=== PATIENT | female | born 1970 | race American Indian/Alaskan Native ===

== ENCOUNTER 2020-09-13 06:09 | Observation (INO) | payer OTHER ==
[2020-09-09 15:08] LABS: Basophils % (Auto) 0.9 % (0.0-1.8); Eosinophils # (Auto) 0.1 K/mm3 (0.0-0.4); Eosinophils % (Auto) 2.9 % (0.0-4.3); Hematocrit 41.1 % (30.3-42.9); Hemoglobin 14.1 gm/dl (10.1-14.3); Lymphocytes # (Auto) 1.8 K/mm3 (1.2-5.4); Lymphocytes % (Auto) 42.4 % (13.4-35.0); Mean Corpuscular HGB Conc 34 % (30-34); Mean Corpuscular Volume 85 fl (79-97); Monocytes # (Auto) 0.3 K/mm3 (0.0-0.8); Platelet Count 274 K/mm3 (140-440); Red Blood Count 4.82 M/mm3 (3.65-5.03); Red Cell Distribution Width 14.4 % (13.2-15.2)
[2020-09-09 15:11] LABS: BUN/Creatinine Ratio 15; Blood Urea Nitrogen 12 mg/dL (7-17); Calcium 9.9 mg/dL (8.4-10.2); Hemolysis Index 44
--- NOTE | 2020-09-09 15:44 | Anesthesia Consultation ---
Anesthesia Consult and Med Hx Date of service: 09/13/20 - Airway Anesthetic Teeth Evaluation: Good ROM Head & Neck: Adequate Mental/Hyoid Distance: Adequate Mallampati Class: Class II Intubation Access Assessment: Probably Good - Pulmonary Exam CTA: Yes - Cardiac Exam Cardiac Exam: RRR - Pre-Operative Health Status ASA Pre-Surgery Classification: ASA2 Proposed Anesthetic Plan: General Nerve Block: TAP if open procedure - Pulmonary Hx Smoking: No Hx Respiratory Symptoms: No - Cardiovascular System Hx Hypertension: Yes Hx Heart Attack/AMI: No - Central Nervous System CVA: No - Endocrine Hx Renal Disease: No Hx Liver Disease: No Hx Insulin Dependent Diabetes: No Hx Non-Insulin Dependent Diabetes: No Hx Thyroid Disease: No - Other Systems Hx Obesity: Yes (BMI 36) - Additional Comments Anesthesia Medical History Comments: Medical preop eval 08/18/20 on chart. States recent EKG NSR.
--- NOTE | 2020-09-12 09:15 | History and Physical Report ---
History of Present Illness Date of examination: 09/07/20 Date of admission: 09/13/2020 Chief complaint: heavy bleeding w/o the IUD in place and continued irregular bleeding since placement. History of present illness: Visit Type: Pre-Op CC: pre op. History of Present Illness: pt presents for pre op visit.......................................................... ...............Pamela Asher September 07, 2020 10:14 AM Mask, Patient denies fever, cough, shortness of breath and exposure to COVID-19. Patient presents for pre op for LAVH with BS and removal of IUD. All risk/benefits/alternatives were d/w pt and questions were addressed and answered. Consents signed and placed on the chart. She did see pcp and have medical clearance. Vital Signs: Patient Profile: 50 Years Old Female Height: 69 inches Weight: 255 pounds BMI: 37.65 Temp: 97.9 degrees F BP sittin / 84 (left arm) Current Method of Contraception: IUD Date of Last Pap Smear: 07/11/2020 Past History : 1 Term Births: 1 Living Children: 1 Para: 1 JAIL KEEPER History Uterine Surgery (not C/S): negative Operations: positive Endometrial Ablation: Tonsillectomy- ESSURE Tubal Ligation removal of neck mass Hospitalizations: negative Anesthesia Complications: negative Abnormal PAP: negative Uterine Anomaly: negative CARLI Exposure: negative Infertility: negative Infection History HIV Risk Eval: no Personal hx. of genital herpes: yes Partner hx. of genital herpes: no Hx of STD: HSV Active Medications: TRAMADOL () FEXOFENADINE 180MG () NORETHINDRONE () VALACYCLOVIR () LISINOPRIL/ HCTZ 12.5/ 20 () KYLEENA () Current Allergies: No known allergies Past Medical History: Reviewed history from 07/11/2020 and no changes required: Fibroids Hypertension Past Surgical History: Reviewed history from 07/11/2020 and no changes required: positive Endometrial Ablation: Tonsillectomy- ESSURE Tubal Ligation removal of neck mass Family History Summary: Reviewed history and no changes required: 09/12/2020 General Comments - FH: CHF, DM, Kidney Dz-father Prostate CA-father MGM-colon CA; breast CA Social History: Reviewed history from 07/11/2020 and no changes required: Patient is single Smoking History: Patient has never smoked. occ ETOH, no tobacco, no durgs referred by Annabelle Lane via FB Risk Factors: Smoked Tobacco Use: Never smoker Smokeless Tobacco Use: Never Drug use: no HIV high-risk behavior: no Alcohol use: yes Exercise: no Seatbelt use: 100 % PAP Smear History: Date of Last PAP Smear: 07/11/2020 [ROS-[facility]] [Labs In-House] Physical Exam Appearance: well developed, well nourished, no acute distress Other Exams Lungs: no rales, rhonchi, or wheezes Heart: S1, S2, no murmur, rub, or gallop Abdomen: soft, non-tender, no masses, bowel sounds normal Extremities: normal alignment, no joint enlargement, crepitus, masses or tenderness; normal tone and strength Genitourinary Exam Comments: deferred until EUA Past History Past Medical History: hypertension, other (fibroids) Past Surgical History: other (see HPI) JAIL KEEPER History: other (see HPI) Family/Genetic History: other (see HPI) Social history: other (see HPI) Medications and Allergies Allergies Allergy/AdvReac Type Severity Reaction Status Date / Time No Known Allergies Allergy Unverified 09/07/20 16:24 Home Medications Medication Instructions Recorded Confirmed Last Taken Type Fexofenadine (Nf) 1 tab PO DAILY 09/07/20 09/07/20 Unknown History Lisinopril/Hydrochlorothiazide 1 each PO DAILY 09/07/20 09/07/20 Unknown History [Zestoretic 10-12.5 mg Tablet] Norethindrone Acetate [Aygestin] 5 mg PO DAILY 09/07/20 09/07/20 Unknown History Valacyclovir HCl [Valacyclovir] 500 mg PO DAILY 09/07/20 09/07/20 Unknown History Active Meds: Active Medications Acetaminophen (Acetaminophen 500 Mg Tab) 1,000 mg PO PREOP PARUL Celecoxib (Celecoxib 200 Mg Cap) 200 mg PO PREOP NR Stop: 09/13/20 23:59 Gabapentin (Gabapentin 300 Mg Cap) 300 mg PO PREOP NR Stop: 09/13/20 23:59 Lactated Ringer's (Lactated Ringers) 1,000 mls @ 100 mls/hr IV DIRECT PARUL Stop: 09/13/20 23:59 Midazolam HCl (Midazolam 2 Mg/2 Ml Inj) 2 mg IV PREOP NR Stop: 09/13/20 23:59 Scopolamine (Scopolamine Transdermal Patch 72 Hr) 1 each TD PREOP NR Stop: 09/13/20 23:59 - Vital Signs Vital signs: Vital Signs Temp Pulse Resp BP Pulse Ox 99 F 78 20 138/85 100 09/09/20 13:30 09/09/20 13:30 09/09/20 13:30 09/09/20 13:30 09/09/20 13:30 Temp Pulse Resp BP Pulse Ox 99 F 78 20 138/85 100 09/09/20 13:30 09/09/20 13:30 09/09/20 13:30 09/09/20 13:30 09/09/20 13:30 Results Result Diagrams: 09/09/20 13:36 09/09/20 13:36 All other labs normal. Assessment and Plan - Patient Problems (1) Fibroid Status: Acute (2) Menorrhagia Status: Acute Qualifiers: Menorrhagia type: with regular cycle Qualified Code(s): N92.0 - Excessive and frequent menstruation with regular cycle Plan to address problem: Patient desires removal of uterus. All other risk benefits and alternatives have been discussed with pt. Pt expressed understanding and all questions were addressed and answered.
[~2020-09-13 06:09] MED LIST: ACETAMINOPHEN 500 MG TAB PO SCH; CELECOXIB 200 MG CAP PO NR; GABAPENTIN 300 MG CAP PO NR; MIDAZOLAM 2 MG/2 ML INJ IV NR; SCOPOLAMINE TRANSDERMAL PATCH 72 HR TD NR; ceFAZolin/Water 2 GM/20 ML 2 GM/20 ML SYRINGE IV NR
--- NOTE | 2020-09-13 06:54 | Anesthesia Day of Surgery ---
Anesthesia Day of Surgery - Day of Surgery Patient Examined: Yes Patient H&P Reviewed: Yes Patient is NPO: Yes
[2020-09-13] MEDS ORDERED: VASOPRESSIN 20 UNIT/1 ML INJ ONE (06:55)
[2020-09-13] MEDS ORDERED: METHYLENE BLUE 50 MG/10 ML AMP ONE (06:55)
[2020-09-13] MEDS ORDERED: SODIUM CHLORIDE 0.9% 100 ML ONE (06:55)
[2020-09-13] MEDS ORDERED: BUPIVACAINE/PF (0.5%) 5 MG/1 ML 30 ML VIAL INFILTRATI ONE ×3 (06:55→08:20)
[2020-09-13] MEDS: LACTATED RINGERS 1,000 ML IV SCH ×2 (07:00→22:16)
[2020-09-13] MEDS ORDERED: ONDANSETRON 4 MG/2 ML INJ ONE (07:21)
[2020-09-13] MEDS ORDERED: dexAMETHasone 20 MG/5 ML VIAL ONE (07:21)
[2020-09-13] MEDS ORDERED: ROCURONIUM 50 MG/5 ML INJ IV ONE (07:21)
[2020-09-13] MEDS ORDERED: KETOROLAC 30 MG/1 ML INJ ONE (07:21)
[2020-09-13] MEDS ORDERED: LIDOCAINE MPF (2%) 20 MG/1 ML VIAL 5 ML ONE (07:21)
[2020-09-13] MEDS ORDERED: HYDROmorphone 1 MG/1 ML INJ ONE (07:23)
[2020-09-13] MEDS ORDERED: propofoL 200 MG/20 ML VIAL IV ONE (07:24)
[2020-09-13] MEDS ORDERED: VASOPRESSIN 20 UNIT/1 ML INJ IV ONE (08:19)
[2020-09-13] MEDS ORDERED: SODIUM CHLORIDE 0.9% IRR 1,500 ML BOTTLE IR ONE (08:21)
[2020-09-13] MEDS ORDERED: SODIUM CHLORIDE 0.9% 100 ML IVPB IV ONE (08:35)
[2020-09-13] MEDS ORDERED: ePHEDrine SULFATE 50 MG/1 ML INJ ONE (08:46)
[2020-09-13] MEDS ORDERED: LACTATED RINGERS 1,000 ML ONE (08:50)
[2020-09-13] MEDS ORDERED: NEOSTIGMINE 10MG/10 ML INJ MDV ONE (10:10)
[2020-09-13] MEDS ORDERED: GLYCOPYRROLATE 0.4 MG/2 ML INJ ONE (10:10)
[2020-09-13] MEDS ORDERED: ONDANSETRON 4 MG/2 ML INJ IV PRN (10:13)
[2020-09-13] MEDS ORDERED: KETOROLAC 30 MG/1 ML INJ IV PRN (10:13)
[2020-09-13] MEDS ORDERED: ACETAMINOPHEN 325 MG TAB PO PRN (10:13)
--- NOTE | 2020-09-13 10:13 | Operative Report ---
Operative Report Operative Report: Date of procedure: 09/13/2020 Pre-operative diagnosis: Fibroid uterus Menorrhagia Post-operative diagnosis: Same Procedure name(s): Laparoscopic assisted vaginal hysterectomy Bilateral salpingectomy Removal of intrauterine device Surgeon: Albania Oropeza MD Slag Skimmer: Dr. Virginia Cody Anesthesia: General trach anesthesia EBL: 150 mL Urine output: 200 mL of clear urine out at end of procedure Fluids: 1600 mL Findings: Approximately 9-week size uterus with anterior fibroid noted appears to be approximately 2 cm Grossly normal fallopian tubes with Filshie clips in place Normal ovaries bilaterally Indications: Patient presents for scheduled hysterectomy with removal of intrauterine device and removal of fallopian tubes. Patient has known history of menorrhagia and is status post failed endometrial ablation. Patient desired definitive therapy. All risk benefits and alternatives were discussed with the patient. Consents were signed and placed on the chart. Procedure: Patient was taken to the operating room where she was placed under general endotracheal anesthesia. She was then prepped and draped in sterile fashion. Attention was turned to the cervix in which the intrauterine device string was noted. A ring forceps was then used to remove the device in its entirety. It was at this point that the small V care uterine manipulator was placed inside of the uterus after the uterus was sounded to approximately 12 cm. Michele catheter was also placed at this time. Attention was then turned to the umbilicus in which a supraumbilical incision was made. Under direct visualization the 5 mm trocar was placed inside the peritoneum the peritoneum was then insufflated. As at this point that the laparoscopic portion of the procedure was performed. 2 lateral 5 mm ports were also placed under direct visualization. Using the tripolar instrument the upper pedicles were cauterized and transected to the including round ligament with excellent hemostasis noted bilaterally. It was thought that so at this point that the fallopian tubes were cauterized and transected and removed and handed off for pathology. Filshie clips were also removed at this time handed off for pathology. Attention was then turned vaginally. A weighted speculum was placed into the vagina and the cervix was grasped with a single-tooth tenaculum 2. The cervix was then injected circumferentially with Pitressin. The cervix was then circumferentially incised with the scalpel and the bladder dissected off of the pubovesical cervical fascia anteriorly with a sponge stick and Metzenbaum scissors. The same procedure was performed posteriorly and the posterior cul-de-sac was entered into sharply without difficulty. At this point a Nicki Clamp was placed over the uterosacral ligaments on either side. These were then transected and suture ligated with 0 Vicryl. Hemostasis was assured. The cardinal ligaments were then clamped on both sides transected and suture ligated in similar fashion. The uterine arteries were then serially clamped with Nicki clamps transected and suture ligated on both sides. Excellent hemostasis was visualized. After it was clear that the uterus had been completely from all pedicles the uterus was removed vaginally intact with cervix intact. The vaginal cuff angles were closed with figure of 8 stitches of 0 Vicryl on both sides. The peritoneum was incorporated in the stitching of the vaginal cuff. A series of interrupted figure of 8 sutures using 0 Vicryl were used to close the entire vaginal cuff. Excellent hemostasis was noted. The vagina was then irrigated copiously. Attention was then turned laparoscopically at which time. Again all pedicles were noted to be hemostatic. The ureters were identified bilaterally with peristalsis noted bilaterally. Scarlet was placed along with the vaginal cuff and upper pedicles with excellent hemostasis noted. All instruments were then removed from the abdomen and the vagina. All gas was released from the abdomen. The abdominal incisions were closed using 4-0 Monocryl. All of the abdominal incisions were injected with Marcaine without epi. Patient tolerated the procedure well sponge lap and needle counts were all correct 3 the patient was taken to the recovery room awake and in stable condition.
[2020-09-13] MEDS: ceFAZolin/NS 1 GM/50 ML 1 GM/50 ML BAG IV SCH ×2 (13:50→22:16)
--- NOTE | 2020-09-13 16:34 | Post Anesthesia Evaluation ---
- Post Anesthesia Evaluation Patient Participated: Yes Airway Patent: Yes Stable Respiratory Function: Yes Nausea/Vomiting: No Temp > 96.8F: Yes Pain Manageable: Yes Adequeate Hydration: Yes Anesthesia Complications: No Block Receding Appropriately: Not Applicable Patient on Ventilator: No
[2020-09-13] MEDS: HYDROcodone/ACETAMINOPHEN 5-325 MG TAB PO PRN ×2 (17:03→22:16)
[2020-09-13] MEDS ORDERED: hydroCHLOROthiazide 12.5 MG CAP PO SCH (22:00)
[2020-09-13] MEDS ORDERED: LISINOPRIL 10 MG TAB PO SCH (22:00)
[2020-09-14 07:21] LABS: Hematocrit 37.6 % (30.3-42.9); Hemoglobin 12.7 gm/dl (10.1-14.3)
[2020-09-14] MEDS ORDERED: IBUPROFEN 800 MG TAB PO PRN (08:00)
--- NOTE | 2020-09-14 09:28 | Progress Note ---
Assessment and Plan - Patient Problems (1) Fibroid Current Visit: No Status: Acute (2) Menorrhagia Current Visit: No Status: Acute Qualifiers: Menorrhagia type: with regular cycle Qualified Code(s): N92.0 - Excessive and frequent menstruation with regular cycle Subjective - Subjective Interval history: Visit Type: Pre-Op CC: pre op. History of Present Illness: pt presents for pre op visit.........................................................................Mikhail Asher September 07, 2020 10:14 AM Mask, Patient denies fever, cough, shortness of breath and exposure to COVID-19. Patient presents for pre op for LAVH with BS and removal of IUD. All risk/benefits/alternatives were d/w pt and questions were addressed and answered. Consents signed and placed on the chart. She did see pcp and have medical clearance. Vital Signs: Patient Profile: 50 Years Old Female Height: 69 inches Weight: 255 pounds BMI: 37.65 Temp: 97.9 degrees F BP sittin / 84 (left arm) Current Method of Contraception: IUD Date of Last Pap Smear: 07/11/2020 Past History : 1 Term Births: 1 Living Children: 1 Para: 1 [employer] History Uterine Surgery (not C/S): negative Operations: positive Endometrial Ablation: Tonsillectomy- ESSURE Tubal Ligation removal of neck mass Hospitalizations: negative Anesthesia Complications: negative Abnormal PAP: negative Uterine Anomaly: negative CARLI Exposure: negative Infertility: negative Infection History HIV Risk Eval: no Personal hx. of genital herpes: yes Partner hx. of genital herpes: no Hx of STD: HSV Active Medications: TRAMADOL () FEXOFENADINE 180MG () NORETHINDRONE () VALACYCLOVIR () LISINOPRIL/ HCTZ 12.5/ 20 () KYLEENA () Current Allergies: No known allergies Past Medical History: Reviewed history from 07/11/2020 and no changes required: Fibroids Hypertension Past Surgical History: Reviewed history from 07/11/2020 and no changes required: positive Endometrial Ablation: Tonsillectomy- ESSURE Tubal Ligation removal of neck mass Family History Summary: Reviewed history and no changes required: 09/12/2020 General Comments - FH: CHF, DM, Kidney Dz-father Prostate CA-father MGM-colon CA; breast CA Social History: Reviewed history from 07/11/2020 and no changes required: Patient is single Smoking History: Patient has never smoked. occ ETOH, no tobacco, no durgs referred by Annabelle Lane via FB Risk Factors: Smoked Tobacco Use: Never smoker Smokeless Tobacco Use: Never Drug use: no HIV high-risk behavior: no Alcohol use: yes Exercise: no Seatbelt use: 100 % PAP Smear History: Date of Last PAP Smear: 07/11/2020 [ROS-CCC] [Labs In-House] Physical Exam Appearance: well developed, well nourished, no acute distress Other Exams Lungs: no rales, rhonchi, or wheezes Heart: S1, S2, no murmur, rub, or gallop Abdomen: soft, non-tender, no masses, bowel sounds normal Extremities: normal alignment, no joint enlargement, crepitus, masses or tenderness; normal tone and strength Genitourinary Exam Comments: deferred until EUA Objective - Vital Signs Latest vital signs: Vital Signs Temp Pulse Resp Resp BP BP Pulse Ox 09/14/20 07:31 97.9 F 65 18 116/65 98 09/14/20 05:39 98 F 74 16 108/66 09/14/20 00:40 97.8 F 73 18 109/54 94 09/13/20 22:25 16 09/13/20 20:05 97.9 F 82 18 125/60 94 09/13/20 19:34 97.4 F L 89 97 H 115/61 09/13/20 15:26 97.7 F 89 20 119/71 98 09/13/20 11:30 97.4 F L 65 19 127/64 99 09/13/20 11:20 97.4 F L 68 15 97 09/13/20 11:00 97 F L 57 L 16 123/64 97 09/13/20 10:45 58 L 16 117/58 96 09/13/20 10:30 58 L 14 115/60 100 09/13/20 10:25 63 18 108/51 100 09/13/20 10:20 58 L 14 117/57 100 09/13/20 10:15 65 15 111/54 100 Intake and Output 09/13/20 09/14/20 09/14/20 22:59 06:59 14:59 Intake Total 1660 400 120 Output Total 640 2800 Balance 1020 -2400 120 Intake: IV 1050 ANCEF/NS 1 GM/50 ML 1 gm 50 In 50 ml @ 100 mls/hr IV Q8H PARUL Rx#:[id number] Lactated Ringers 1,000 ml 1000 @ 100 mls/hr IV DIRECT PARUL Rx#:[id number] Oral 410 120 Intake, Free Water 200 400 Output: Urine 640 2800 Indwelling Catheter 600 2800 Uretheral (Michele) 20 Other: Total, Intake Amount 200 120 Total, Output Amount 600 1300 Voiding Method Indwelling Catheter Indwelling Catheter # Voids Indwelling Catheter 0
--- NOTE | 2020-09-14 09:29 | Discharge Summary ---
Providers - Providers Date of Admission: 09/13/20 10:13 Attending physician: ALIYA GARCIA Primary care physician: MERT FORREST Hospitalization - Discharge Diagnoses (1) Fibroid Status: Acute (2) Menorrhagia Status: Acute Qualifiers: Menorrhagia type: with regular cycle Qualified Code(s): N92.0 - Excessive and frequent menstruation with regular cycle Plan - Discharge Medications Prescriptions: Ibuprofen [Motrin 800 MG tab] 800 mg PO Q8HR PRN #30 tablet PRN Reason: Pain, Moderate (4-6) oxyCODONE /ACETAMINOPHEN [Percocet 5/325] 1 tab PO Q4HR #30 tab - Provider Discharge Summary Additional instructions: [] Smoking cessation referral if applicable(refer to patient education folder for contact #) [] Refer to [facility] Booklet Call your doctor immediately for: * Fever > 100.5 * Heavy vaginal bleeding ( >1 pad per hour) * Severe persistent headache * Shortness of breath * Reddened, hot, painful area to leg or breast * Drainage or odor from incision. * Keep incision clean and dry at all times and follow doctor's instructions regarding bathing/showering - Follow up plan Follow up: MERT FORREST MD [Primary Care Provider] - 7 Days Forms: [facility]
[2020-09-14 11:50] VITALS: BP 123/69
== END 2020-09-14 12:15 | disposition home or self-care (01) ==
LOC: OR 06:09 → OB 10:13
PROVIDERS: ADMIT Obstetrics & Gynecology; ATTEND Obstetrics & Gynecology
DX: N92.0 Excessive and frequent menstruation with regular cycle (principal); D25.9 Leiomyoma of uterus, unspecified; I10 Essential (primary) hypertension; Z90.49 Acquired absence of other specified parts of digestive tract; Z98.890 Other specified postprocedural states; Z79.899 Other long term (current) drug therapy
CPT/HCPCS: 36415; 58552; 80048; 81025; 82962; 85014; 85018; 85025; 86850; 86900; 86901; 88302; 88307; 96365; 96366; 96375; G0378; J0690; J1100; J1170; J1885; J2250; J2405; J2704; J2710; J7120; Q9968